=== PATIENT | male | born 1955 | race Caucasian/White ===

== ENCOUNTER 2016-08-03 16:32 | Emergency (ER) | payer MEDICARE, MEDICAID ==
[2016-08-03 16:59] VITALS: BP 151/105
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
[2016-08-03] MEDS ORDERED: HYDROmorphone 1 MG/ML Syringe IM ONE (17:20)
[2016-08-03] MEDS ORDERED: Diazepam 5 MG Tab PO ONE (18:55)
== END 2016-08-03 20:00 | disposition home or self-care (01) ==
LOC: JD.ED 16:32
DX: G89.29 Other chronic pain (principal); M54.5 Low back pain; I10 Essential (primary) hypertension; E78.00 Pure hypercholesterolemia, unspecified; F41.9 Anxiety disorder, unspecified; Z98.890 Other specified postprocedural states; Z79.899 Other long term (current) drug therapy; F17.210 Nicotine dependence, cigarettes, uncomplicated; Z88.8 Allergy status to other drugs, medicaments and biological substances
CPT/HCPCS: 96372; 99283; A9270; J1170; 99284

== ENCOUNTER 2016-08-06 04:23 | Emergency (ER) | payer MEDICARE, MEDICAID ==
[2016-08-06 04:38] VITALS: BP 138/103
[2016-08-06] MEDS ORDERED: Orphenadrine 100 MG Tab.ER PO STA (05:30)
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
--- NOTE | 2016-08-06 10:29 | CR ---
Lumbar spine: AP, lateral and coned down lateral views centered to the lumbosacral junction were obtained. Comparison: Previous MRI lumbar spine study of 04/24/10 is available. Severe disc space narrowing noted at L5-S1 with posterior spurring. Severe posterior disc space narrowing noted at L4-L5 with mild posterior osteophytes. Mild posterior disc space narrowing noted at L1-L2 and L2-L3. Mild compression deformity seen of T12 which appears to be old. Scattered endplate osteophytes are seen. Pedicles as well as visualized transverse and spinous processes are intact. Sacroiliac joints are unremarkable. Impression: 1. Diffuse degenerative change. Mild compression deformity of T12 which appears old. Overall, findings are fairly similar to prior MRI. Diagnostic code #2
== END 2016-08-06 07:00 | disposition home or self-care (01) ==
LOC: JD.ED 04:23
DX: G89.29 Other chronic pain (principal); M54.40 Lumbago with sciatica, unspecified side; R20.0 Anesthesia of skin; E78.00 Pure hypercholesterolemia, unspecified; I10 Essential (primary) hypertension; J44.9 Chronic obstructive pulmonary disease, unspecified; M19.90 Unspecified osteoarthritis, unspecified site; F41.9 Anxiety disorder, unspecified; Z79.899 Other long term (current) drug therapy; Z88.8 Allergy status to other drugs, medicaments and biological substances; F17.210 Nicotine dependence, cigarettes, uncomplicated
CPT/HCPCS: 72100; 99284; A9270; 99283

== ENCOUNTER 2016-10-27 19:34 | Emergency (ER) | payer MEDICARE, MEDICAID ==
--- NOTE | 2016-10-27 20:09 | EDM.PDOC ---
ED HPI GENERAL MEDICAL PROBLEM - General Chief Complaint: Headache Stated Complaint: HASN'T SLEPT IN A WEEK /HEADACHE Time Seen by Provider: 10/27/16 20:08 - History of Present Illness INITIAL COMMENTS - FREE TEXT/NARRATIVE: 60-year-old male presents to the emergency room with a migraine headache. This headache has been present for a little over a week the patient has been unable to sleep for about a week. He is unsure how this one actually started is progressively gotten worse. The patient has a history of recurrent migraines this one is no different except has not gone away the patient is on chronic oxycodone for back and neck pain. The patient has not any fevers or chills with this headache no areas of numbness or weakness. Headache Pain Score (Numeric/FACES): 10 - Related Data Allergies Allergy/AdvReac Type Severity Reaction Status Date / Time ketorolac [From Toradol] Allergy Nausea Verified 10/27/16 19:48 paroxetine [From Paxil] Allergy Nausea Verified 10/27/16 19:48 sertraline [From Zoloft] Allergy Nausea Verified 10/27/16 19:48 Home Meds: Home Meds Acetaminophen/oxyCODONE [Percocet 325-5 MG] 1 tab PO Q4H PRN 10/27/16 [History] Ipratropium/Albuterol Sulfate [Combivent Respimat Inhal [place]] 1 inh INH Q4H PRN 10/27/16 [History] Losartan [Cozaar] 50 mg PO DAILY 10/27/16 [History] Orphenadrine [Norflex] 100 mg PO Q8H PRN 10/27/16 [History] Pravastatin [Pravachol] 40 mg PO DAILY 10/27/16 [History] oxyCODONE ER [OxyCONTIN] 40 mg PO BID 10/27/16 [History] ED ROS GENERAL - Review of Systems Review Of Systems: See Below Constitutional: Reports: No Symptoms HEENT: Reports: No Symptoms Respiratory: Reports: No Symptoms Cardiovascular: Reports: No Symptoms Endocrine: Reports: No Symptoms GI/Abdominal: Reports: No Symptoms, Mucous in Stool Neurological: Reports: Headache. Denies: Confusion, Dizziness, Pre-Existing Deficit, Seizure, Syncope Psychiatric: Reports: No Symptoms. Denies: Homicidal Ideation, Mood Lability, Suicidal Ideation - Physical Exam Exam: See Below Exam Limited By: No Limitations General Appearance: Alert, No Apparent Distress Eye Exam: Bilateral Eye: EOMI, Normal Fundi, PERRL Ears: Normal External Exam, Normal Canal, Hearing Grossly Normal, Normal TMs Nose: Normal Inspection, Normal Mucosa, No Blood Throat/Mouth: Normal Inspection, Normal Lips, Normal Teeth, Normal Gums, Normal Oropharynx, Normal Voice, No Airway Compromise Head Exam: Atraumatic, Normocephalic Neck: Normal Inspection, Supple, Non-Tender, Full Range of Motion. No: Lymphadenopathy (L), Lymphadenopathy (R) Respiratory/Chest: No Respiratory Distress, Lungs Clear, Normal Breath Sounds Cardiovascular: Regular Rate, Rhythm, No Edema, No Murmur GI/Abdominal: Normal Bowel Sounds, Soft, Non-Tender Neuro Exam (Abbreviated): Alert, Oriented, Other (Cranial nerves II through XII grossly intact all muscle groups the upper extremities are equal and appropriate bilaterally all muscle groups the lower extremities are equal and appropriate bilaterally deep tendon reflexes are equal radialis and patella tendons are normal bilaterally cerebellar testing is entirely within normal limits.) Course - Vital Signs Last Recorded V/S: Last Vital Signs Temp 36.6 C 10/27/16 19:42 Pulse 95 10/27/16 19:42 Resp 12 10/27/16 19:42 BP 170/97 H 10/27/16 19:42 Pulse Ox 100 10/27/16 19:42 - Orders/Labs/Meds Meds: Medications Discontinued Medications Generic Name Dose Route Start Last Admin Trade Name Freq PRN Reason Stop Dose Admin Diphenhydramine HCl 50 mg 10/27/16 20:28 10/27/16 20:58 Benadryl IVPUSH 10/27/16 20:29 50 mg ONETIME ONE Administration Hydromorphone HCl 0.5 mg 10/27/16 21:21 10/27/16 21:31 Dilaudid IVPUSH 10/27/16 21:22 0.5 mg ONETIME ONE Administration Lactated Ringer's 1,000 mls @ 999 mls/hr 10/27/16 20:28 10/27/16 20:51 Ringers, Lactated IV 10/27/16 21:28 999 mls/hr .BOLUS ONE Administration Metoclopramide HCl 5 mg 10/27/16 20:28 10/27/16 20:53 Reglan IVPUSH 10/27/16 20:29 5 mg ONETIME ONE Administration - Re-Assessments/Exams Free Text/Narrative Re-Assessment/Exam: 10/27/16 22:04 Patient was initially treated with 5 mg of Reglan 50 mg of Benadryl liter of LR he did not get much relief with this this was followed up with a half milligram of Dilaudid he is getting some improvement at this time with this however he thinks he's okay to go home and sleep this off he does have a ride to take him home Departure - Departure Time of Disposition: 22:05 Disposition: Home, Self-Care 01 Clinical Impression: Migraine - Discharge Information Forms: ED Department Discharge Additional Instructions: Go home and sleep this off. Return to the emergency room with any questions or problems. Followup with your regular physician next week
[2016-10-27] MEDS ORDERED: Metoclopramide 10 MG/2 ML SDV IVPUSH ONE (20:28)
[2016-10-27] MEDS ORDERED: diphenhydrAMINE 50 MG/ML SDV IVPUSH ONE (20:28)
[2016-10-27] MEDS ORDERED: Lactated Ringers 1,000 ML IV ONE (20:28)
[2016-10-27] MEDS ORDERED: HYDROmorphone 0.5 MG/0.5 ML Syringe IVPUSH ONE (21:21)
[2016-10-27 22:57] VITALS: BP 144/91
== END 2016-10-27 22:25 | disposition home or self-care (01) ==
LOC: JD.ED 19:34 → MERGE 19:34 → JD.ED 22:25
DX: G43.909 Migraine, unspecified, not intractable, without status migrainosus (principal); Z79.899 Other long term (current) drug therapy; Z88.6 Allergy status to analgesic agent; Z88.8 Allergy status to other drugs, medicaments and biological substances
CPT/HCPCS: 96361; 96374; 96375; 99283; J1170; J1200; J2765; J7120; 99284

== ENCOUNTER 2016-11-21 18:52 | Emergency (ER) | payer MEDICARE, MEDICAID ==
[2016-11-21 19:11] VITALS: BP 169/112
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
[2016-11-21] MEDS ORDERED: HYDROmorphone 0.5 MG/0.5 ML Syringe IM ONE (19:25)
[2016-11-21] MEDS ORDERED: HYDROmorphone 1 MG/ML Syringe ONE (20:19)
--- NOTE | 2016-11-22 08:41 | CR ---
Lumbar spine: AP, lateral and coned-down lateral views centered to the lumbosacral junction were obtained. Comparison: Previous lumbar spine exam of 08/06/16. Mild anterior wedging is noted at T12 which appears stable. Severe disc space narrowing is noted at L5-S1. Moderate disc space narrowing is noted at L1-L2. Mild disc space narrowing is noted at L2-L3. Scattered anterior endplate osteophytes are seen. Pedicles as well as transverse and spinous processes are intact. No subluxation or fracture is seen. Atherosclerotic calcification is noted within the abdominal aorta. Detached bony density noted off the spinous process of L4 which appears old. Impression: 1. Stable anterior wedging of T12. 2. Degenerative change as noted above. Nothing acute is appreciated. Diagnostic code #2
== END 2016-11-21 20:51 | disposition home or self-care (01) ==
LOC: JD.ED 18:52
DX: M54.5 Low back pain (principal); I10 Essential (primary) hypertension; E78.00 Pure hypercholesterolemia, unspecified; J44.9 Chronic obstructive pulmonary disease, unspecified; M19.90 Unspecified osteoarthritis, unspecified site; F41.9 Anxiety disorder, unspecified; F17.210 Nicotine dependence, cigarettes, uncomplicated; Z98.890 Other specified postprocedural states; Z79.899 Other long term (current) drug therapy; Z88.6 Allergy status to analgesic agent; Z88.8 Allergy status to other drugs, medicaments and biological substances
CPT/HCPCS: 72100; 96372; 99283; J1170

== ENCOUNTER 2016-12-21 15:28 | Emergency (ER) | payer MEDICARE, MEDICAID ==
[2016-12-21 15:45] VITALS: BP 152/97
[2016-12-21] MEDS ORDERED: Metoclopramide 5 MG Tab PO ONE (16:14)
[2016-12-21] MEDS ORDERED: HYDROmorphone 1 MG/ML Syringe IM ONE (16:14)
[2016-12-21] MEDS ORDERED: diphenhydrAMINE 25 MG Cap PO ONE (16:15)
[2016-12-21] MEDS ORDERED: Metoclopramide Oral Soln 10 MG/10 ML UD Cup PO ONE (16:32)
[2016-12-21] MEDS ORDERED: Metoclopramide 10 MG Tab PO ONE (16:40)
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
== END 2016-12-21 17:40 | disposition home or self-care (01) ==
LOC: JD.ED 15:28
DX: M54.5 Low back pain (principal); R51 Headache; E78.00 Pure hypercholesterolemia, unspecified; I10 Essential (primary) hypertension; J44.9 Chronic obstructive pulmonary disease, unspecified; F41.9 Anxiety disorder, unspecified; F17.210 Nicotine dependence, cigarettes, uncomplicated; Z88.8 Allergy status to other drugs, medicaments and biological substances; Z88.6 Allergy status to analgesic agent; Z79.899 Other long term (current) drug therapy
CPT/HCPCS: 96372; 99284; A9270; J1170; 99283

== ENCOUNTER 2017-01-15 02:20 | Emergency (ER) | payer MEDICARE, MEDICAID ==
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
[2017-01-15 02:31] VITALS: BP 194/96
[2017-01-15] MEDS ORDERED: Acetaminophen/HYDROcodone 325-5 MG Tab PO ONE (02:42)
[2017-01-15] MEDS ORDERED: Amoxicillin 500 MG Cap PO ONE (02:42)
== END 2017-01-15 03:06 | disposition home or self-care (01) ==
LOC: JD.ED 02:20
DX: K08.89 Other specified disorders of teeth and supporting structures (principal); I10 Essential (primary) hypertension; E78.00 Pure hypercholesterolemia, unspecified; J44.9 Chronic obstructive pulmonary disease, unspecified; M19.90 Unspecified osteoarthritis, unspecified site; F41.9 Anxiety disorder, unspecified; F17.210 Nicotine dependence, cigarettes, uncomplicated; Z98.890 Other specified postprocedural states; Z79.899 Other long term (current) drug therapy; Z88.8 Allergy status to other drugs, medicaments and biological substances; Z88.6 Allergy status to analgesic agent; Z88.1 Allergy status to other antibiotic agents
CPT/HCPCS: 99283; A9270

== ENCOUNTER 2017-01-19 15:22 | Emergency (ER) | payer MEDICARE, MEDICAID ==
[2017-01-19 15:35] VITALS: BP 184/102
[2017-01-19] MEDS ORDERED: Acetaminophen Soln 650 MG/20.3 ML UD Cup PO ONE (16:08)
--- NOTE | 2017-01-19 16:16 | EDM.PDOC ---
ED HPI GENERAL MEDICAL PROBLEM - General Chief Complaint: Back Pain or Injury Stated Complaint: BACK PAIN Time Seen by Provider: 01/19/17 15:39 Source of Information: Reports: Patient, Old Records, RN Notes Reviewed History Limitations: Reports: No Limitations - History of Present Illness INITIAL COMMENTS - FREE TEXT/NARRATIVE: The patient states that he has had low back pain for 20 years. He is treated by Dr. Thais Temple at [facility] in [place], and the [place] PMPi indicates that the patient filled prescriptions for OxyContin 40 mg #56 tablets and Percocet 5/325 #112 tablets on 12/26/2016. He now presents with an exacerbation of his low back pain, stating that he over did it by doing laundry and bills yesterday. He states that he feels better. His walking, worse if he is lying down. He states that he did not run out of his prescription narcotics. Since he is under contract with a pain service, and states that he has not run out of his prescription pain medications, he is not able to elucidate why he came to the ED. lower back Pain Score (Numeric/FACES): 8 - Related Data Allergies Allergy/AdvReac Type Severity Reaction Status Date / Time fentanyl Allergy Hives Verified 01/19/17 15:36 gabapentin [From Neurontin] Allergy Rash Verified 01/19/17 15:36 ketorolac [From Toradol] Allergy Nausea Verified 01/19/17 15:36 ketorolac tromethamine Allergy Hives Verified 01/19/17 15:36 [From Toradol] paroxetine [From Paxil] Allergy Nausea Verified 01/19/17 15:36 sertraline [From Zoloft] Allergy Nausea Verified 01/19/17 15:36 sertraline HCl [From Zoloft] Allergy Hives Verified 01/19/17 15:36 Home Meds: Home Meds Fluticasone Propionate [Flonase] 1 spray NASBOTH DAILY 01/29/14 [History] Temazepam [Restoril] 30 mg PO BEDTIME 01/29/14 [History] Orphenadrine [Norflex] 100 mg PO BID 05/18/15 [History] Docusate Sodium [Colace] 100 mg PO DAILY 04/17/16 [History] Acetaminophen/oxyCODONE [Percocet 325-5 MG] 1 tab PO Q4H PRN 06/10/17 [History] Ipratropium/Albuterol Sulfate [Combivent Respimat Inhal [place]] 1 inh INH Q4H PRN 10/27/16 [History] Losartan [Cozaar] 50 mg PO DAILY 10/27/16 [History] Pravastatin [Pravachol] 40 mg PO DAILY 10/27/16 [History] oxyCODONE ER [OxyCONTIN] 40 mg PO BID 10/27/16 [History] Amoxicillin 500 mg PO TID #30 tab 01/15/17 [Rx] Hydrocodone/Acetaminophen [[place] 5-325 Tablet] 1 - 2 each PO Q6H #10 tablet [Rx] Past Medical History HEENT History: Reports: Impaired Vision, Other (See Below) Other HEENT History: dental pain, dentures Cardiovascular History: Reports: High Cholesterol, Hypertension Respiratory History: Reports: COPD (suspected, not diagnosed) Musculoskeletal History: Reports: Arthritis, Back Pain, Chronic, Fracture Neurological History: Reports: Headaches, Chronic, Head Trauma Psychiatric History: Reports: Anxiety - Infectious Disease History Infectious Disease History: Reports: Chicken Pox - Past Surgical History Musculoskeletal Surgical History: Reports: Arthroscopic Knee (right) Social & Family History - Family History Family Medical History: Noncontributory - Tobacco Use Smoking Status *Q: Current Every Day Smoker Years of Tobacco use: 45 Packs/Tins Daily: 0.2 Packs/Tins Daily Comment: Down from 10 packs per week - Caffeine Use Caffeine Use: Reports: Coffee, Soda - Alcohol Use Alcohol Use History: No Days Per Week of Alcohol Use: 0 - Recreational Drug Use Recreational Drug Use: Yes Drug Use in Last 12 Months: No Recreational Drug Type: Reports: Marijuana/Hashish - Living Situation & Occupation Living situation: Reports: Alone, Single 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) ED ROS GENERAL - Review of Systems Review Of Systems: See Below Constitutional: Reports: No Symptoms HEENT: Reports: No Symptoms Respiratory: Reports: No Symptoms Cardiovascular: Reports: No Symptoms Endocrine: Reports: No Symptoms GI/Abdominal: Reports: No Symptoms : Reports: No Symptoms Musculoskeletal: Reports: Back Pain (as per the HPI) Skin: Reports: No Symptoms Neurological: Reports: No Symptoms Psychiatric: Reports: No Symptoms Hematologic/Lymphatic: Reports: No Symptoms Immunologic: Reports: No Symptoms ED EXAM,LOWER BACK PAIN/INJURY - Physical Exam Exam: See Below Exam Limited By: No Limitations General Appearance: Alert, WD/WN, No Apparent Distress Ears: Normal External Exam, Hearing Grossly Normal Nose: Normal Inspection, No Blood Throat/Mouth: Normal Inspection, Normal Lips, Normal Voice, No Airway Compromise Head: Atraumatic, Normocephalic Neck: Normal Inspection, Full Range of Motion Back Exam: Normal Inspection, Full Range of Motion, Vertebral Tenderness (The patient jumped and an exaggerated fashion with minimal palpation to the lumbar spinous processes). No: Paraspinal Tenderness Neurological: Alert, No Motor/Sensory Deficits, Oriented x 3 Psychiatric: Normal Affect Skin Exam: Warm, Dry, Intact, Normal Color, No Rash Course - Vital Signs Last Recorded V/S: Last Vital Signs Temp 36.2 C 01/19/17 15:32 Pulse 95 01/19/17 15:32 Resp 18 01/19/17 15:32 BP 184/102 H 01/19/17 15:32 Pulse Ox 99 01/19/17 15:32 - Orders/Labs/Meds Meds: Medications Discontinued Medications Generic Name Dose Route Start Last Admin Trade Name Chaoq PRN Reason Stop Dose Admin Acetaminophen 650 mg 01/19/17 16:08 01/19/17 16:16 Tylenol PO 01/19/17 16:09 650 mg ONETIME ONE Administration - Re-Assessments/Exams Free Text/Narrative Re-Assessment/Exam: 01/19/17 16:09 The patient is complaining of chronic low back pain, but states that he has not suffered any recent injury. The objective findings of his examination do not correlate with his subjective complaints as he is reporting significant tenderness, jumping with even minimal palpation of his spinous processes, which would only be possible with a spinous process fracture, intraspinous ligament tear, or supraspinous ligament tear. These would only occur with a significant traumatic injury, which the patient denies having had recently. While the patient denies that he is looking for pain medication, I do not see any other reason for his visit to the ED today. I am offering him Tylenol, noting that he is under the care of Dr. Thais Temple from [facility] in [place]. Departure - Departure Time of Disposition: 16:16 Disposition: Home, Self-Care 01 Condition: Good Clinical Impression: Chronic low back pain, Drug-seeking behavior - Discharge Information Instructions: Back Pain, Adult, [id number] Referrals: William De MD [Primary Care Provider] - Thais Temple MD [Resident] - Forms: ED Department Discharge Additional Instructions: You were seen in the emergency room for chronic low back pain. As this is a chronic condition, with no new injury, he will need to follow-up with your pain management physician, Dr. Temple. If any other problems, please do not hesitate to return to the ER.
== END 2017-01-19 16:33 | disposition home or self-care (01) ==
LOC: JD.ED 15:22
DX: G89.29 Other chronic pain (principal); M54.5 Low back pain; Z76.5 Malingerer [conscious simulation]; I10 Essential (primary) hypertension; E78.00 Pure hypercholesterolemia, unspecified; J44.9 Chronic obstructive pulmonary disease, unspecified; F41.9 Anxiety disorder, unspecified; F17.210 Nicotine dependence, cigarettes, uncomplicated; M19.90 Unspecified osteoarthritis, unspecified site; Z79.899 Other long term (current) drug therapy; Z88.1 Allergy status to other antibiotic agents; Z88.6 Allergy status to analgesic agent; Z88.8 Allergy status to other drugs, medicaments and biological substances; Z98.890 Other specified postprocedural states
CPT/HCPCS: 99283; A9270

== ENCOUNTER 2017-01-31 19:04 | Emergency (ER) | payer MEDICARE, MEDICAID ==
[2017-01-31 19:14] VITALS: BP 151/92
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
[2017-01-31] MEDS ORDERED: HYDROmorphone 1 MG/ML Syringe IM ONE (20:59)
--- NOTE | 2017-02-01 09:02 | CR ---
Left forearm: Two views of the left forearm were obtained. No fracture or other bony abnormality is identified. Soft tissue swelling is present. Impression: 1. No bony abnormality is identified on two-view left forearm study. Diagnostic code #2
--- NOTE | 2017-02-01 10:07 | CR ---
Left wrist: Three views of the left wrist were obtained. Comparison: No prior wrist exam. Joint spaces are maintained. No fracture, dislocation or other bony abnormality is seen. Impression: 1. No abnormality is identified on left wrist exam. Diagnostic code #1
== END 2017-01-31 21:20 | disposition home or self-care (01) ==
LOC: JD.ED 19:04
DX: M10.9 Gout, unspecified (principal); E78.00 Pure hypercholesterolemia, unspecified; I10 Essential (primary) hypertension; J44.9 Chronic obstructive pulmonary disease, unspecified; F41.9 Anxiety disorder, unspecified; F17.210 Nicotine dependence, cigarettes, uncomplicated; Z88.6 Allergy status to analgesic agent; Z88.8 Allergy status to other drugs, medicaments and biological substances; Z79.899 Other long term (current) drug therapy
CPT/HCPCS: 73090; 73110; 96372; 99284; J1170; 99283

== ENCOUNTER 2017-05-25 10:09 | Emergency (ER) | payer MEDICARE, MEDICAID ==
[2017-05-25 10:30] VITALS: BP 146/94
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
--- NOTE | 2017-05-26 12:54 | CR ---
Chest and left ribs: Frontal view of the chest was obtained as well as three views of the left ribs. Comparison: No prior rib exam, previous chest x-ray of 06/19/11 is available. Several old healed left-sided rib fractures are noted. Several old right upper rib fractures also noted which appear healed. No definite acute rib fracture is appreciated. Lungs are clear. Heart size and mediastinum are normal. Minimal scoliosis is noted within the spine with degenerative endplate spurring. Impression: 1. Several old bilateral rib fractures which appear healed. 2. No definite acute rib fracture is appreciated. Nothing acute is seen on frontal chest x-ray Diagnostic code #2
--- NOTE | 2017-05-26 12:54 | CR ---
Right knee: Four views of the right knee were obtained. Comparison: No prior knee exam is available. Moderate narrowing of the medial joint compartment is seen. Degenerative cysts seen within the medial tibia. Lateral joint space appears preserved. Joint effusion is seen. Detached bony density which appears old is noted off the anterior tibial tuberosity. Vascular calcification is present. No acute bony abnormality is identified on right knee exam. Impression: 1. Degenerative change. Joint effusion. Vascular calcification. 2. No acute bony abnormality is identified. Diagnostic code #3
--- NOTE | 2017-05-26 12:54 | CR ---
Lumbar spine: AP, lateral and coned-down lateral views centered to the lumbosacral junction were obtained. Comparison: Prior lumbar spine study of 11/21/16. Anterior wedge deformity is identified within T12. This appears stable from prior exam. Scattered disc space narrowing throughout the lower thoracic and lumbar spine is seen which appears stable. Disc space narrowing is most severe at L5-S1. Minimal retrolisthesis is noted at L1-L2 and L2-L3 which appears stable. Scattered endplate osteophytes are seen. Pedicles as well as visualized transverse and spinous processes are intact. Posterior spurring noted at L4-L5 and L5-S1 as well as at L12. Impression: 1. Anterior wedging of T12 which appears stable from prior lumbar spine study. 2. Stable degenerative change as described above. 3. Nothing acute is appreciated. Diagnostic code #2
--- NOTE | 2017-05-26 12:54 | CR ---
Sacrum and coccyx: Three views of the sacrum and coccyx were obtained. Comparison: No prior study. Severe disc space narrowing is noted at L5-S1 with posterior spurring. Sacroiliac joints appear within normal limits. No acute fracture or other bony abnormality is seen within the sacrum or coccyx. Mild joint space narrowing is seen within both hips. Impression: 1. Degenerative change as noted above. 2. Nothing acute is appreciated on sacrum and coccyx study. Diagnostic code #2
== END 2017-05-25 13:21 | disposition home or self-care (01) ==
LOC: JD.ED 10:09
DX: M25.561 Pain in right knee (principal); M54.5 Low back pain; E78.00 Pure hypercholesterolemia, unspecified; I10 Essential (primary) hypertension; F17.210 Nicotine dependence, cigarettes, uncomplicated; Z88.6 Allergy status to analgesic agent; Z88.8 Allergy status to other drugs, medicaments and biological substances; Z79.899 Other long term (current) drug therapy; W19.XXXA Unspecified fall, initial encounter
CPT/HCPCS: 71101-26-LT; 71101-LT; 72100; 72100-26; 72220; 72220-26; 73564-26-RT; 73564-RT; 99283

== ENCOUNTER 2017-09-14 19:27 | Emergency (ER) | payer MEDICARE, MEDICAID ==
[2017-09-14 19:45] VITALS: BP 124/98
--- NOTE | 2017-09-14 20:02 | EDM.PDOC ---
ED HPI GENERAL MEDICAL PROBLEM - General Chief Complaint: Upper Extremity Injury/Pain Stated Complaint: LEFT ELBOW PAIN Time Seen by Provider: 09/14/17 19:40 Source of Information: Reports: Patient, Old Records History Limitations: Reports: No Limitations - History of Present Illness INITIAL COMMENTS - FREE TEXT/NARRATIVE: The patient states that he slipped and fell getting out of the shower about a month ago, striking his left elbow. He states that he immediately had pain and swelling to the area. He saw his PCP, Dr. Partida, on 09/04/2017. He states no x- rays were done, but that he was prescribed baclofen, not for his elbow, but for his other generalized aches and pains. The patient cannot explain why he took so long to see Dr. Partida, other than "I' m stubborn" and he cannot explain specifically why he came to the ED tonight. The patient is under pain contract for chronic back pain. He tells us that his pain service allows him to get an injection, but not pills. Please note that that is contrary to a standardized pain contract. Left Elbow Pain Score (Numeric/FACES): 10 - Related Data Allergies Allergy/AdvReac Type Severity Reaction Status Date / Time fentanyl Allergy Hives Verified 05/25/17 10:24 gabapentin [From Neurontin] Allergy Rash Verified 05/25/17 10:24 ketorolac [From Toradol] Allergy Nausea Verified 05/25/17 10:24 ketorolac tromethamine Allergy Hives Verified 05/25/17 10:24 [From Toradol] paroxetine [From Paxil] Allergy Nausea Verified 05/25/17 10:24 sertraline [From Zoloft] Allergy Nausea Verified 05/25/17 10:24 sertraline HCl [From Zoloft] Allergy Hives Verified 05/25/17 10:24 Home Meds: Home Meds Fluticasone Propionate [Flonase] 1 spray NASBOTH DAILY 01/29/14 [History] Temazepam [Restoril] 30 mg PO BEDTIME 01/29/14 [History] Docusate Sodium [Colace] 100 mg PO DAILY 04/17/16 [History] Ipratropium/Albuterol Sulfate [Combivent Respimat Inhal [place]] 1 inh INH Q4H PRN 06/10/17 [History] Losartan [Cozaar] 50 mg PO DAILY 10/27/16 [History] Pravastatin [Pravachol] 40 mg PO DAILY 10/27/16 [History] oxyCODONE ER [OxyCONTIN] 40 mg PO BID 10/27/16 [History] Cyclobenzaprine [Flexeril] 5 mg PO TID 09/14/17 [History] Past Medical History HEENT History: Reports: Impaired Vision Other HEENT History: dental pain, dentures Cardiovascular History: Reports: High Cholesterol, Hypertension Respiratory History: Reports: COPD (suspected, not confirmed) Other Respiratory History: smoker Musculoskeletal History: Reports: Arthritis, Back Pain, Chronic, Fracture ( vertebral compression fractures) Neurological History: Reports: Headaches, Chronic, Head Trauma Psychiatric History: Reports: Anxiety - Infectious Disease History Infectious Disease History: Reports: Chicken Pox - Past Surgical History Musculoskeletal Surgical History: Reports: Arthroscopic Knee (right) Social & Family History - Family History Family Medical History: Noncontributory - Tobacco Use Smoking Status *Q: Current Every Day Smoker Years of Tobacco use: 48 Packs/Tins Daily: 0.4 Packs/Tins Daily Comment: Down from 1.5 ppd - Caffeine Use Caffeine Use: Reports: Coffee, Soda - Alcohol Use Alcohol Use History: No Days Per Week of Alcohol Use: 0 - Recreational Drug Use Recreational Drug Use: Yes Drug Use in Last 12 Months: No Recreational Drug Type: Reports: Marijuana/Hashish - Living Situation & Occupation Living situation: Reports: Alone, Single Occupation: Unemployed Review of Systems - Review of Systems Review Of Systems: ROS reveals no pertinent complaints other than HPI. ED EXAM, GENERAL - Physical Exam Exam: See Below Exam Limited By: No Limitations General Appearance: Alert, WD/WN, No Apparent Distress Extremities: Other (Relatively small effusion over the extensor aspect of the elbow, consistent with lichen on bursitis. Mild tenderness to palpation in this area. Full active and passive range of motion of the elbow. Neurovascular status of the left upper extremity is intact.) Course - Vital Signs Last Recorded V/S: Last Vital Signs Temp 36.8 C 09/14/17 19:43 Pulse 103 H 09/14/17 19:43 Resp 20 09/14/17 19:43 BP 124/98 H 09/14/17 19:43 Pulse Ox 100 09/14/17 19:43 - Orders/Labs/Meds Orders: Active Orders 24 hr Category Date Time Status Elbow Min 3V Lt [CR] Stat Exams 09/14/17 19:54 Ordered - Re-Assessments/Exams Free Text/Narrative Re-Assessment/Exam: 09/14/17 20:14 4-view radiographs of the left elbow appear to be normal. No obvious fracture or dislocation seen, and no subtle findings, such as sail sign. Formal read per the Radiologist pending. 09/14/17 20:21 X-ray results discussed with the patient. I do not see an indication to aspirate or inject steroids into the elbow at this time, however, I will refer him to Dr. Ramirez for follow-up. Departure - Departure Time of Disposition: 20:21 Disposition: Home, Self-Care 01 Condition: Good Clinical Impression: Olecranon bursitis of left elbow - Discharge Information Referrals: William De MD [Primary Care Provider] - Valentín Ramirez MD [Physician] - Forms: ED Department Discharge Additional Instructions: You were seen in the emergency room for pain and swelling to your left elbow after injuring it in late July 2017. Workup in the ER included x-rays of your left elbow, which were normal. No fracture or dislocation identified. The cause of your pain and swelling is MOST LIKELY due to traumatic olecranon bursitis. Follow-up with the Orthopedic Surgeon Dr. Ramirez for further evaluation. If any other problems, please do not hesitate to return to the ER. - My Orders Last 24 Hours: My Active Orders 09/14/17 19:54 Elbow Min 3V Lt [CR] Stat - Assessment/Plan Last 24 Hours: My Active Orders 09/14/17 19:54 Elbow Min 3V Lt [CR] Stat
--- NOTE | 2017-09-15 14:26 | CR ---
Left elbow: Four views of the left elbow were obtained. Comparison: No prior elbow study. No joint effusion is seen. Joint spaces are preserved. No fracture, dislocation or other bony abnormality is seen. Impression: 1. No abnormality is identified on left elbow study. Diagnostic code #1
== END 2017-09-14 20:30 | disposition home or self-care (01) ==
LOC: JD.ED 19:27
DX: M70.22 Olecranon bursitis, left elbow (principal); E78.00 Pure hypercholesterolemia, unspecified; I10 Essential (primary) hypertension; J44.9 Chronic obstructive pulmonary disease, unspecified; F41.9 Anxiety disorder, unspecified; F17.210 Nicotine dependence, cigarettes, uncomplicated; Z88.8 Allergy status to other drugs, medicaments and biological substances; Z79.899 Other long term (current) drug therapy; Z88.5 Allergy status to narcotic agent; Y93.E1 Activity, personal bathing and showering; W01.10XA Fall on same level from slipping, tripping and stumbling with subsequent striking against unspecified object, initial encounter
CPT/HCPCS: 73080-26-LT; 73080-LT; 99283

== ENCOUNTER 2017-11-02 11:32 | Emergency (ER) | payer MEDICARE, MEDICAID ==
[2017-11-02 12:01] VITALS: BP 143/95
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
[2017-11-02 13:32] LABS: ACETAMINOPHEN 0 ug/mL (10-30)
--- NOTE | 2017-11-05 15:42 | CT ---
Head CT Technique: Multiple axial sections through the brain were obtained. Intravenous contrast was not utilized. Comparison: No previous intracranial imaging. Findings: Ventricles along the basal cisterns and sulci over the convexities are mildly prominent. Minimal diminished density is noted within the periventricular white matter which is compatible with small vessel ischemic demyelination change. No other abnormal parenchymal densities are seen. No evidence of intracranial hemorrhage. No midline shift or mass effect is seen. No discrete calvarial abnormality is seen. Visualized sinuses are clear. Impression: 1. Mild senescent change. No acute intracranial abnormality is identified. Diagnostic code #2 I agree with preliminary report from [facility], finalized at 11/02/17, 3:20 PM Central Time
== END 2017-11-02 14:30 ==
LOC: MERGE 11:32 → JD.ED 11:32
DX: R41.82 Altered mental status, unspecified (principal); T40.2X5A Adverse effect of other opioids, initial encounter; T42.4X5A Adverse effect of benzodiazepines, initial encounter; E87.1 Hypo-osmolality and hyponatremia; Z88.6 Allergy status to analgesic agent
CPT/HCPCS: 36415; 70450; 80053; 83735; 84443; 85025; 99284; G0480; 99283

== ENCOUNTER 2017-11-24 10:41 | Emergency (ER) | payer MEDICARE, MEDICAID ==
[2017-11-24 10:52] VITALS: BP 133/92
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
== END 2017-11-24 11:20 | disposition home or self-care (01) ==
LOC: JD.ED 10:41
DX: M25.511 Pain in right shoulder (principal); E78.00 Pure hypercholesterolemia, unspecified; I10 Essential (primary) hypertension; J44.9 Chronic obstructive pulmonary disease, unspecified; F17.210 Nicotine dependence, cigarettes, uncomplicated; Z88.8 Allergy status to other drugs, medicaments and biological substances; Z79.899 Other long term (current) drug therapy
CPT/HCPCS: 99283

== ENCOUNTER 2018-01-05 06:11 | Emergency (ER) | payer MEDICARE, MEDICAID ==
[2018-01-05] MEDS ORDERED: Acetaminophen/oxyCODONE 325-5 MG Tab PO ONE (06:21)
[2018-01-05 06:22] VITALS: BP 141/85
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
[2018-01-05] MEDS ORDERED: Bupivacaine 0.5% 10 ML SDV INJECT ONE (06:41)
[2018-01-05] MEDS ORDERED: Doxycycline 100 MG Cap PO ONE (07:17)
--- NOTE | 2018-01-08 11:04 | CR ---
Right fourth finger: Four views centered to the right fourth finger were obtained. Comparison: No prior study. Joint spaces are maintained. No fracture, dislocation or other bony abnormality is seen. Impression: 1. No abnormality is appreciated on right fourth finger study. Diagnostic code #1
== END 2018-01-05 08:42 | disposition home or self-care (01) ==
LOC: JD.ED 06:11
DX: S61.314A Laceration without foreign body of right ring finger with damage to nail, initial encounter (principal); E78.00 Pure hypercholesterolemia, unspecified; I10 Essential (primary) hypertension; J44.9 Chronic obstructive pulmonary disease, unspecified; F17.290 Nicotine dependence, other tobacco product, uncomplicated; Z79.899 Other long term (current) drug therapy; Z88.5 Allergy status to narcotic agent; Z88.8 Allergy status to other drugs, medicaments and biological substances; W01.0XXA Fall on same level from slipping, tripping and stumbling without subsequent striking against object, initial encounter
CPT/HCPCS: 12001; 73140; 99283; A9270; J3490

== ENCOUNTER 2018-01-27 19:31 | Emergency (ER) | payer MEDICARE, MEDICAID ==
[2018-01-27 20:02] VITALS: BP 143/91
--- NOTE | 2018-01-28 07:45 | CR ---
Chest: Two views of the chest were obtained. Comparison: Prior chest x-ray of 05/25/17. Increased lung markings are seen from prior exam. Findings presumably represent moderately severe bronchitis. Several old healed left mid rib fractures are noted. Heart does not appear enlarged. Mild degenerative endplate spurring is noted within the spine. Several compression deformities are seen within the spine which are believed to be old. Impression: 1. Increased lung markings from prior study raising the possibility of moderately severe bronchitis. 2. Other findings as noted above appear to be stable from previous exam. Diagnostic code #3
--- NOTE | 2018-01-28 08:03 | EDM.PDOC ---
ED HPI GENERAL MEDICAL PROBLEM - General Chief Complaint: Chest Pain Stated Complaint: RIB PAIN Time Seen by Provider: 01/27/18 23:07 Source of Information: Reports: Patient History Limitations: Reports: No Limitations - History of Present Illness INITIAL COMMENTS - FREE TEXT/NARRATIVE: The patient states that she slipped and fell down last night, 01/26/2018, injuring her right back. No recent cough. No recent fever. The patient is chronically dyspneic due to (suspected) COPD. The patient has a history of chronic back pain. 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 Review of the [place] PMPi confirms that the patient is prescribed oxycodone 5 mg, 56 tablets (28 day supply) every month, by Dr. Temple. The patient was also seen by Dr. Ramirez on 01/05/2018 or 01/06/2018, and underwent shoulder trigger point injection. The patient's PCP is Dr. Partida, whom she sees about every 6 months. She last saw him about 2 months ago. Review of our medical records finds that the patient has been previously found to be drug-seeking. Right Pain Score (Numeric/FACES): 10 - Related Data Allergies Allergy/AdvReac Type Severity Reaction Status Date / Time fentanyl Allergy Hives Verified 01/27/18 20:02 gabapentin [From Neurontin] Allergy Rash Verified 01/27/18 20:02 ketorolac [From Toradol] Allergy Nausea Verified 01/27/18 20:02 ketorolac tromethamine Allergy Hives Verified 01/27/18 20:02 [From Toradol] paroxetine [From Paxil] Allergy Nausea Verified 01/27/18 20:02 sertraline [From Zoloft] Allergy Nausea Verified 01/27/18 20:02 sertraline HCl [From Zoloft] Allergy Hives Verified 01/27/18 20:02 Home Meds: Home Meds Fluticasone Propionate [Flonase] 1 spray NASBOTH DAILY 01/29/14 [History] Temazepam [Restoril] 30 mg PO BEDTIME 01/29/14 [History] Docusate Sodium [Colace] 100 mg PO DAILY 04/17/16 [History] Ipratropium/Albuterol Sulfate [Combivent Respimat Inhal [place]] 1 puff INH QID PRN 10/27/16 [History] Losartan [Cozaar] 50 mg PO DAILY 10/27/16 [History] Pravastatin [Pravachol] 40 mg PO DAILY 10/27/16 [History] oxyCODONE ER [OxyCONTIN] 30 mg PO BID 10/27/16 [History] Orphenadrine [Norflex] 1 tab PO BID 11/24/17 [History] oxyCODONE 5 mg PO DAILY PRN 01/27/18 [History] Azithromycin [Zithromax] 250 mg PO DAILY #6 tab 01/29/18 [Rx] Past Medical History HEENT History: Reports: Impaired Vision Other HEENT History: dentures Cardiovascular History: Reports: High Cholesterol, Hypertension Respiratory History: Reports: COPD (suspected, not confirmed) Musculoskeletal History: Reports: Arthritis, Back Pain, Chronic, Fracture ( vertebral compression) Neurological History: Reports: Headaches, Chronic, Head Trauma Psychiatric History: Reports: Anxiety, Other (See Below) (Drug seekig behavior) - Infectious Disease History Infectious Disease History: Reports: Chicken Pox - Past Surgical History Musculoskeletal Surgical History: Reports: Arthroscopic Knee (right) Dermatological Surgical History: Reports: Skin Graft (left hand) Social & Family History - Family History Family Medical History: Noncontributory - Tobacco Use Smoking Status *Q: Current Every Day Smoker Years of Tobacco use: 49 Packs/Tins Daily: 0.3 Packs/Tins Daily Comment: Down from 1 ppd - Caffeine Use Caffeine Use: Reports: Coffee - Alcohol Use Alcohol Use History: No - Recreational Drug Use Recreational Drug Use: No - Living Situation & Occupation Living situation: Reports: Alone, Single Occupation: Unemployed ED ROS GENERAL - Review of Systems Review Of Systems: ROS reveals no pertinent complaints other than HPI. ED EXAM, GENERAL - Physical Exam Exam: See Below Exam Limited By: No Limitations General Appearance: Alert, WD/WN, No Apparent Distress Eye Exam: Bilateral Eye: EOMI, Normal Inspection Ears: Normal External Exam, Hearing Grossly Normal Nose: Normal Inspection Throat/Mouth: Normal Inspection, Normal Lips, Normal Voice, No Airway Compromise Head: Atraumatic, Normocephalic Neck: Normal Inspection, Full Range of Motion Respiratory/Chest: No Respiratory Distress, Lungs Clear, Normal Breath Sounds, No Accessory Muscle Use Cardiovascular: Normal Peripheral Pulses, Regular Rate, Rhythm, No Edema, No Gallop, No JVD, No Murmur, No Rub Peripheral Pulses: 4+: Radial (L), Radial (R) GI/Abdominal: Normal Bowel Sounds, Soft, Non-Tender, No Organomegaly, No Distention, No Abnormal Bruit, No Mass (Male) Exam: Deferred Rectal (Males) Exam: Deferred Back Exam: Other (Diagonal surgical scar on the patient's right flank - the patient states that she does not know what it is from) Extremities: Normal Inspection, Normal Range of Motion, Non-Tender, Normal Capillary Refill, No Pedal Edema Neurological: Alert, Oriented, Normal Cognition, No Motor/Sensory Deficits Skin Exam: Warm, Dry, Intact, Normal Color, No Rash Course - Vital Signs Last Recorded V/S: Last Vital Signs Temp 37.3 C 01/27/18 19:58 Pulse 108 H 01/27/18 19:58 Resp 19 01/27/18 19:58 BP 143/91 H 01/27/18 19:58 Pulse Ox 95 01/27/18 19:58 - Re-Assessments/Exams Free Text/Narrative Re-Assessment/Exam: 01/28/18 00:06 2 view chest radiograph reviewed. Cardiac silhouette is within normal limits. No pulmonary vascular congestion. No pleural effusions. There are bilateral hazy infiltrates, possibly due to pneumonia, atelectasis, bronchitis, or pulmonary fibrosis. No pneumothorax. Formal read per the Radiologist pending. The pulmonary infiltrates were not seen on the patient's prior chest radiographs , however, a lateral view is not available to compare. The patient has no pulmonary symptoms, such as cough or fever. She states that he is chronically dyspneic, no worse than usual. I have asked [facility] to review the patient's chest radiograph. 01/28/18 03:50 I inquired about the delay in receiving the chest x-ray interpretation from [facility], and was told that they are extremely busy and backed up. Notified that the patient left the emergency department, not willing to wait for the chest x-ray results. 01/28/18 05:10 Two-view chest radiograph is read by [facility] as: 1. COPD 2. Increased density in both lower lobes suggestive of bilateral pneumonia versus atelectasis. Departure - Departure Time of Disposition: 03:50 Disposition: Eloped 07 Condition: Good Clinical Impression: Back pain - Discharge Information *PRESCRIPTION DRUG MONITORING PROGRAM REVIEWED*: Yes *COPY OF PRESCRIPTION DRUG MONITORING REPORT IN PATIENT EVIE: Yes Prescriptions: Azithromycin [Zithromax] 250 mg PO DAILY #6 tab Referrals: William De MD [Primary Care Provider] - Forms: ED Department Discharge
== END 2018-01-28 03:45 | disposition left against medical advice (07) ==
LOC: JD.ED 19:31
DX: M54.9 Dorsalgia, unspecified (principal); G89.29 Other chronic pain; J44.9 Chronic obstructive pulmonary disease, unspecified; I10 Essential (primary) hypertension; F41.9 Anxiety disorder, unspecified; E78.00 Pure hypercholesterolemia, unspecified; F17.210 Nicotine dependence, cigarettes, uncomplicated; Z79.899 Other long term (current) drug therapy; Z88.6 Allergy status to analgesic agent; Z88.8 Allergy status to other drugs, medicaments and biological substances; W01.0XXA Fall on same level from slipping, tripping and stumbling without subsequent striking against object, initial encounter
CPT/HCPCS: 71046; 71046-26; 99283; 99285

== ENCOUNTER 2018-05-12 16:40 | Emergency (ER) | payer MEDICARE, MEDICAID ==
[2018-05-12 16:48] VITALS: BP 160/103
[2018-05-12] MEDS ORDERED: Cyclobenzaprine 10 MG Tab PO ONE (17:43)
[2018-05-12] MEDS ORDERED: Ondansetron 4 MG Tab.DIS PO ONE (17:43)
[2018-05-12] MEDS ORDERED: diphenhydrAMINE 50 MG/ML SDV IM ONE (17:43)
[2018-05-12] MEDS ORDERED: Ketorolac 60 MG/2 ML SDV IM ONE (17:43)
[2018-05-12] MEDS ORDERED: Lidocaine 5% 700 MG Patch TOP ONE (19:08)
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
== END 2018-05-12 19:47 | disposition home or self-care (01) ==
LOC: JD.ED 16:40
DX: G89.29 Other chronic pain (principal); M54.5 Low back pain; E78.00 Pure hypercholesterolemia, unspecified; I10 Essential (primary) hypertension; J44.9 Chronic obstructive pulmonary disease, unspecified; F17.210 Nicotine dependence, cigarettes, uncomplicated; Z88.8 Allergy status to other drugs, medicaments and biological substances; Z88.5 Allergy status to narcotic agent; Z79.899 Other long term (current) drug therapy
CPT/HCPCS: 96372; 99283; A9270; J1200; J1885

== ENCOUNTER 2018-08-13 17:20 | Emergency (ER) | payer MEDICARE, MEDICAID ==
[2018-08-13 17:48] VITALS: BP 162/99
[2018-08-13] MEDS ORDERED: Sodium Chloride 0.9% 1,000 ML IV SCH (18:30)
[2018-08-13] MEDS ORDERED: Haloperidol Lactate 5 MG/ML SDV IM ONE (18:54)
[2018-08-13] MEDS ORDERED: Benztropine 1 MG Tab PO ONE (18:55)
--- NOTE | 2018-08-13 18:59 | CT ---
Head CT Technique: Multiple axial sections through the brain were obtained. Intravenous contrast was not utilized. Comparison: Prior head CT study of 08/10/14. Findings: Ventricles along with basal cisterns and sulci over the convexities are mildly prominent. Minimal diminished density is seen within portions of the periventricular white matter compatible with small vessel ischemic demyelination change which appears stable from previous exam. Old lacunar infarct is noted within the right basal ganglia. No other abnormal parenchymal densities are seen. No evidence of intracranial hemorrhage. No midline shift or mass effect is seen. Bone window settings were reviewed which shows the visualized sinuses to appear clear. No acute calvarial abnormality is appreciated. Impression: 1. Mild senescent change as noted above. Nothing acute is appreciated on noncontrast head CT exam. Diagnostic code #2
[2018-08-13] MEDS ORDERED: Ketorolac 30 MG/ML SDV IVPUSH ONE (19:21)
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
[2018-08-13] MEDS ORDERED: Acetaminophen 325 MG Tab PO ONE (19:43)
== END 2018-08-13 20:25 | disposition home or self-care (01) ==
LOC: JD.ED 17:20
DX: R51 Headache (principal); E78.00 Pure hypercholesterolemia, unspecified; I10 Essential (primary) hypertension; J44.9 Chronic obstructive pulmonary disease, unspecified; F41.9 Anxiety disorder, unspecified; F17.210 Nicotine dependence, cigarettes, uncomplicated; Z88.8 Allergy status to other drugs, medicaments and biological substances; Z79.899 Other long term (current) drug therapy
CPT/HCPCS: 36415; 70450; 80053; 85025; 96360; 99284; A9270; J7040

== ENCOUNTER 2018-09-22 13:20 | Emergency (ER) | payer MEDICARE, MEDICAID | END 2018-09-22 13:44 | disposition left against medical advice (07) | LOC: SUPCPDRO 13:20 → JD.ED 13:20 | DX: Z53.21 Procedure and treatment not carried out due to patient leaving prior to being seen by health care provider (principal) ==

== ENCOUNTER 2019-01-08 16:10 | Emergency (ER) | payer MEDICARE, MEDICAID | END 2019-01-08 16:33 | LOC: JD.ED 16:10 | DX: Z53.21 Procedure and treatment not carried out due to patient leaving prior to being seen by health care provider (principal) ==

== ENCOUNTER 2019-11-28 17:34 | Emergency (ER) | payer MEDICARE, MEDICAID, OTHER ==
[2019-11-28 17:43] VITALS: BP 137/81; PULSE 72
[2019-11-28] MEDS ORDERED: Sodium Chloride 0.9% 10 ML Syringe FLUSH PRN (18:17)
[2019-11-28] MEDS ORDERED: Sodium Chloride 0.9% 1,000 ML IV SCH (18:30)
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
[2019-11-28] MEDS ORDERED: Aspirin 81 MG Tab.Chew PO ONE (19:19)
[2019-11-28] MEDS ORDERED: D5%-0.9% NaCl w/ KCl 40 meq 1,000 ML ONE (19:22)
[2019-11-28] MEDS ORDERED: D5 1/2 NS w/ 40 mEq/L KCl 1,000 ML IV SCH (19:30)
--- NOTE | 2019-11-29 11:25 | CT ---
Head CT Technique: Multiple axial sections through the brain were obtained. Comparison: Prior head CT study of 08/13/18. Findings: Ventricles along with basal cisterns and sulci over the convexities are mildly prominent. Minimal diminished density is noted within portions of the periventricular white matter compatible with minimal small vessel ischemic demyelination change. No other abnormal parenchymal densities are seen. No evidence of intracranial hemorrhage. No midline shift or mass-effect is seen. Minimal atherosclerotic calcification within the carotid siphon is seen. Visualized paranasal sinuses and mastoid sinuses show nothing acute. No acute calvarial finding is seen. Impression: 1. Mild senescent change. 2. No acute intracranial abnormality is appreciated. Diagnostic code #2 This report was dictated in MDT I agree with preliminary report from [facility], finalized on 11/28/19, 8:08 PM Central Daylight Time
== END 2019-11-28 20:44 ==
LOC: JD.ED 17:34
DX: I21.4 Non-ST elevation (NSTEMI) myocardial infarction (principal); M62.82 Rhabdomyolysis; I10 Essential (primary) hypertension; J44.9 Chronic obstructive pulmonary disease, unspecified; Z20.828 Contact with and (suspected) exposure to other viral communicable diseases; Z88.8 Allergy status to other drugs, medicaments and biological substances; Z88.6 Allergy status to analgesic agent; Z79.899 Other long term (current) drug therapy
CPT/HCPCS: 36415; 51701; 70450; 80053; 80306; 80307; 81001; 82550; 83735; 84484; 85025; 86140; 93005; 96361; 96365; 99285; A9270; J3480; J7030; U0002; 93010

== ENCOUNTER 2020-02-29 11:48 | Emergency (ER) | payer MEDICARE, MEDICAID ==
[2020-02-29 12:02] VITALS: BP 135/84
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
[2020-02-29 15:30] VITALS: PULSE 80
== END 2020-02-29 15:31 | disposition home or self-care (01) ==
LOC: JD.ED 11:48
DX: R60.0 Localized edema (principal); F17.210 Nicotine dependence, cigarettes, uncomplicated; I10 Essential (primary) hypertension; J44.9 Chronic obstructive pulmonary disease, unspecified; Z79.899 Other long term (current) drug therapy; Z88.4 Allergy status to anesthetic agent; Z88.8 Allergy status to other drugs, medicaments and biological substances; Z88.6 Allergy status to analgesic agent
CPT/HCPCS: 36415; 71045; 80053; 83880; 84484; 85379; 93005; 93971-RT; 99284-25

== ENCOUNTER 2020-03-24 00:50 | Emergency (ER) | payer MEDICARE, MEDICAID ==
[2020-03-24 01:17] VITALS: BP 125/81; PULSE 89
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
[2020-03-24] MEDS ORDERED: Furosemide 40 MG Tab PO ONE (01:45)
== END 2020-03-24 02:29 | disposition home or self-care (01) ==
LOC: JD.ED 00:50
DX: R60.0 Localized edema (principal); I10 Essential (primary) hypertension; I25.2 Old myocardial infarction; J44.9 Chronic obstructive pulmonary disease, unspecified; F17.210 Nicotine dependence, cigarettes, uncomplicated; Z79.899 Other long term (current) drug therapy; Z88.4 Allergy status to anesthetic agent; Z88.8 Allergy status to other drugs, medicaments and biological substances
CPT/HCPCS: 93005; 99284; A9270; 93010; 99283

== ENCOUNTER 2020-06-21 06:27 | Emergency (ER) | payer MEDICARE, MEDICAID ==
[2020-06-21 06:42] VITALS: BP 115/77; PULSE 77
[2020-06-21] MEDS ORDERED: HYDROmorphone 1 MG/ML Syringe IM ONE (07:01)
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
--- NOTE | 2020-06-21 08:50 | CR ---
Chest: 2 views of the chest were obtained. Comparison: Prior chest x-ray of 01/27/18. Heart size and mediastinum are normal. Questionable nodule within the left base which overlies the anterior sixth rib. I do not appreciate this on the prior study. Lungs otherwise are clear with no acute parenchymal change. Old bilateral rib fractures are noted which appear to be healed. Slight degenerative change is scattered within the spine. Impression: 1. Questionable nodule within the left base. Noncontrast chest CT is recommended. 2. Other nonacute findings as noted above. Diagnostic code #9
== END 2020-06-21 08:55 | disposition home or self-care (01) ==
LOC: JD.ED 06:27
DX: R07.89 Other chest pain (principal); I10 Essential (primary) hypertension; J44.9 Chronic obstructive pulmonary disease, unspecified; I25.2 Old myocardial infarction; Z72.0 Tobacco use; Z88.5 Allergy status to narcotic agent; Z88.8 Allergy status to other drugs, medicaments and biological substances; Z88.6 Allergy status to analgesic agent; Z79.899 Other long term (current) drug therapy; R06.02 Shortness of breath
CPT/HCPCS: 36415; 71046; 80053; 83880; 84484; 85007; 85027; 85379; 85610; 85730; 93005; 96372; 99285; J1170; 93010; 99284

== ENCOUNTER 2020-07-15 15:31 | Emergency (ER) | payer MEDICARE, MEDICAID ==
[2020-07-15 15:45] VITALS: BP 125/92; PULSE 100
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
--- NOTE | 2020-07-17 09:00 | CR ---
Left shoulder: 3 views of the left shoulder were obtained. Comparison: No prior left shoulder exam is available. Glenohumeral joint is normal. Joint space narrowing and mild spurring noted within the acromioclavicular joint. No acute fracture, dislocation or other bony abnormality is appreciated. There is an old healed rib fracture seen within the left eighth rib. Impression: 1. Findings as noted above. 2. Nothing acute is identified. Diagnostic code #2
--- NOTE | 2020-07-17 09:03 | CR ---
Pelvis and left hip: AP view of the pelvis was obtained as well as AP and frog-leg lateral views of the left hip. Comparison: No prior pelvis or left hip exam is available Moderate joint space narrowing is noted within both hips, worse on the left side. Sacroiliac joints are normal. Mild degenerative change is seen within the visualized lower lumbar spine. Vascular calcification is noted. Osteopenia is seen. Nothing acute is identified. Impression: 1. Degenerative change, vascular calcification and osteopenia. 2. No acute abnormality is appreciated. Diagnostic code #2
== END 2020-07-15 18:50 | disposition home or self-care (01) ==
LOC: JD.ED 15:31
DX: M25.512 Pain in left shoulder (principal); M25.552 Pain in left hip; I10 Essential (primary) hypertension; I25.2 Old myocardial infarction; J44.9 Chronic obstructive pulmonary disease, unspecified; F17.200 Nicotine dependence, unspecified, uncomplicated; Z88.4 Allergy status to anesthetic agent; Z88.8 Allergy status to other drugs, medicaments and biological substances; Z88.6 Allergy status to analgesic agent; W18.2XXA Fall in (into) shower or empty bathtub, initial encounter
CPT/HCPCS: 73030-26-LT; 73030-LT; 73502-26-LT; 73502-LT; 99282; 99284

== ENCOUNTER 2020-09-15 08:08 | Emergency (ER) | payer MEDICARE, MEDICAID ==
[2020-09-15 08:19] VITALS: BP 165/119; PULSE 90
[2020-09-15] MEDS ORDERED: Sodium Chloride 0.9% 10 ML Syringe FLUSH PRN (08:55)
[2020-09-15] MEDS ORDERED: HYDROmorphone 1 MG/ML Syringe IVPUSH ONE (08:56)
[2020-09-15] MEDS ORDERED: Ondansetron 4 MG/2 ML SDV IVPUSH ONE (08:56)
[2020-09-15] MEDS ORDERED: cefTRIAXone 2 GM in Sodium Chloride 0.9% 100 ML IV ONE (08:56)
[2020-09-15] MEDS ORDERED: Doxycycline 100 MG Cap PO ONE (08:57)
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
[2020-09-15] MEDS ORDERED: Lidocaine 1% 10 ML MDV ONE (10:23)
[2020-09-15] MEDS ORDERED: Lidocaine 1% 10 ML MDV INJECT ONE (10:46)
== END 2020-09-15 10:57 | disposition home or self-care (01) ==
LOC: JD.ED 08:08
DX: L72.3 Sebaceous cyst (principal); L02.212 Cutaneous abscess of back [any part, except buttock and flank]; E78.00 Pure hypercholesterolemia, unspecified; I10 Essential (primary) hypertension; I25.2 Old myocardial infarction; Z72.0 Tobacco use; Z79.899 Other long term (current) drug therapy; Z88.5 Allergy status to narcotic agent; Z88.6 Allergy status to analgesic agent; Z88.8 Allergy status to other drugs, medicaments and biological substances
CPT/HCPCS: 10060; 87075; 87205; 96365; 96375; 99283; A9270; J0696; J1170; J2405; 10061

== ENCOUNTER 2020-10-23 10:54 | Emergency (ER) | payer MEDICARE, MEDICAID ==
[2020-10-23 11:13] VITALS: BP 116/79; PULSE 90
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
== END 2020-10-23 11:40 | disposition home or self-care (01) ==
LOC: JD.ED 10:54
DX: Z48.817 Encounter for surgical aftercare following surgery on the skin and subcutaneous tissue (principal); I10 Essential (primary) hypertension; I25.2 Old myocardial infarction; F17.200 Nicotine dependence, unspecified, uncomplicated; M19.90 Unspecified osteoarthritis, unspecified site; Z88.4 Allergy status to anesthetic agent; Z88.8 Allergy status to other drugs, medicaments and biological substances; Z88.6 Allergy status to analgesic agent; Z79.82 Long term (current) use of aspirin
CPT/HCPCS: 99282

== ENCOUNTER 2020-12-22 10:45 | Emergency (ER) | payer MEDICARE, MEDICAID ==
[2020-12-22 11:25] VITALS: BP 151/100; PULSE 90
--- NOTE | 2020-12-22 12:10 | CR ---
Right knee: 4 views of the right knee were obtained. Comparison: No prior right knee study is available. Moderate medial joint space narrowing is noted with mild osteophytes seen medially. Detached bony density which appears old is seen off the anterior tibial tuberosity. Vascular calcification is noted. No joint effusion is seen. Impression: 1. Degenerative change primarily within the medial compartment of the right knee. 2. Other findings as noted above. 3. Nothing acute is seen on right knee study. Diagnostic code #2
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
== END 2020-12-22 12:40 | disposition home or self-care (01) ==
LOC: JD.ED 10:45
DX: S83.91XA Sprain of unspecified site of right knee, initial encounter (principal); I10 Essential (primary) hypertension; J44.9 Chronic obstructive pulmonary disease, unspecified; I25.2 Old myocardial infarction; F17.210 Nicotine dependence, cigarettes, uncomplicated; Z88.6 Allergy status to analgesic agent; Z88.8 Allergy status to other drugs, medicaments and biological substances; Z79.82 Long term (current) use of aspirin; W01.0XXA Fall on same level from slipping, tripping and stumbling without subsequent striking against object, initial encounter
CPT/HCPCS: 73564-26-RT; 73564-RT; 99283; 99283-25

== ENCOUNTER 2021-01-22 19:07 | Emergency (ER) | payer MEDICARE, MEDICAID ==
[2021-01-22 19:42] VITALS: BP 123/91; PULSE 91
== END 2021-01-22 21:10 | disposition left against medical advice (07) ==
LOC: JD.ED 19:07
DX: Z53.21 Procedure and treatment not carried out due to patient leaving prior to being seen by health care provider (principal)

== ENCOUNTER 2021-04-01 10:40 | Emergency (ER) | payer MEDICARE, MEDICAID ==
[2021-04-01 11:37] VITALS: BP 172/116; PULSE 92
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
--- NOTE | 2021-04-01 12:55 | CR ---
Left shoulder: 3 views of the left shoulder were obtained. Comparison: Prior left shoulder study of 07/15/20. Glenohumeral joint appears within normal limits. Slight degenerative change is noted within the acromioclavicular joint. Old healed left-sided rib fractures are noted. No fracture, dislocation or other bony abnormality is seen. Impression: 1. Stable findings as noted above. 2. Nothing acute is seen on 3 view left shoulder study. Diagnostic code #2
== END 2021-04-01 12:40 | disposition home or self-care (01) ==
LOC: JD.ED 10:40
DX: S49.92XA Unspecified injury of left shoulder and upper arm, initial encounter (principal); I10 Essential (primary) hypertension; I25.2 Old myocardial infarction; J44.9 Chronic obstructive pulmonary disease, unspecified; M19.90 Unspecified osteoarthritis, unspecified site; F17.200 Nicotine dependence, unspecified, uncomplicated; Z88.6 Allergy status to analgesic agent; Z88.5 Allergy status to narcotic agent; Z88.8 Allergy status to other drugs, medicaments and biological substances; Z79.82 Long term (current) use of aspirin; Z79.899 Other long term (current) drug therapy; W22.8XXA Striking against or struck by other objects, initial encounter
CPT/HCPCS: 73030-26-LT; 73030-LT; 99283

== ENCOUNTER 2021-04-29 15:45 | Emergency (ER) | payer MEDICARE, MEDICAID ==
[2021-04-29 16:35] VITALS: BP 131/85; PULSE 81
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
--- NOTE | 2021-04-30 09:04 | CT ---
Head CT Technique: Multiple axial sections through the brain were obtained. Intravenous contrast was not utilized. Reconstructed coronal and sagittal images were obtained. Comparison: Prior head CT study of 11/28/19. Findings: Ventricles along with basal cisterns and sulci over the convexities are mildly prominent. Minimal decreased density scattered within the periventricular white matter is seen which most likely represents small vessel ischemic demyelination change. No other abnormal parenchymal densities are seen. No evidence of intracranial hemorrhage is seen. No midline shift or mass-effect is seen. Bone window settings were reviewed. No acute calvarial abnormality is seen. Mild mucosal thickening is seen within the right ethmoid sinuses. Mastoid sinuses show nothing acute. Impression: 1. Slight mucosal thickening within the right ethmoid sinuses which is felt to represent chronic change. 2. Mild senescent change as noted above. 2. No acute intracranial abnormality is seen. Diagnostic code #2 I agree with preliminary report from [facility], finalized on 04/29/21, 7:41 PM FITTER HELPER, code 1
--- NOTE | 2021-04-30 09:13 | CT ---
CT facial bones Technique: Multiple axial sections through the facial bones were obtained. Reconstructed coronal and sagittal images were obtained. Comparison: No prior facial bone study is available. Findings: Slight mucosal thickening is seen within the left frontal sinus and within the right ethmoid sinus. Minimal mucosal thickening is seen within the right maxillary sinus. Degenerative change is partially visualized within the cervical spine. Minimal fracture is noted within the nasal bone, no displacement is seen. Other portions of the facial bones appear intact. No additional fracture is seen. Impression: 1. Minimal nasal bone fracture which appears anatomically aligned. This is indeterminate regarding age. 2. Mild chronic sinus findings. 3. No additional facial bone fracture is seen. Diagnostic code #3 I agree with preliminary report from [facility], finalized on 04/29/21, 7:42 PM DATA PROGRAMMER, code 1
== END 2021-04-29 19:03 | disposition home or self-care (01) ==
LOC: JD.ED 15:45
DX: S09.90XA Unspecified injury of head, initial encounter (principal); S00.83XA Contusion of other part of head, initial encounter; I10 Essential (primary) hypertension; I25.2 Old myocardial infarction; J44.9 Chronic obstructive pulmonary disease, unspecified; M19.90 Unspecified osteoarthritis, unspecified site; F17.210 Nicotine dependence, cigarettes, uncomplicated; Z88.8 Allergy status to other drugs, medicaments and biological substances; Z88.5 Allergy status to narcotic agent; Z88.6 Allergy status to analgesic agent; Z79.82 Long term (current) use of aspirin; Z79.899 Other long term (current) drug therapy; Y04.0XXA Assault by unarmed brawl or fight, initial encounter
CPT/HCPCS: 70450; 70450-26; 70486; 70486-26; 99283-25; 99285

== ENCOUNTER 2021-07-01 17:47 | Emergency (ER) | payer MEDICARE, MEDICAID ==
[2021-07-01 18:04] VITALS: BP 157/99; PULSE 76
[2021-07-01] MEDS ORDERED: Ibuprofen 600 MG Tab PO ONE (18:22)
== END 2021-07-01 19:36 | disposition home or self-care (01) ==
LOC: JD.ED 17:47
DX: S20.211A Contusion of right front wall of thorax, initial encounter (principal); S50.11XA Contusion of right forearm, initial encounter; E78.00 Pure hypercholesterolemia, unspecified; I10 Essential (primary) hypertension; I25.2 Old myocardial infarction; J44.9 Chronic obstructive pulmonary disease, unspecified; Z88.5 Allergy status to narcotic agent; Z88.8 Allergy status to other drugs, medicaments and biological substances; Z88.6 Allergy status to analgesic agent; Z79.82 Long term (current) use of aspirin; Z79.899 Other long term (current) drug therapy; Z72.0 Tobacco use; W07.XXXA Fall from chair, initial encounter
CPT/HCPCS: 71101; 73090; 99283; A9270

== ENCOUNTER 2021-12-16 14:26 | Emergency (ER) | payer MEDICARE, MEDICAID ==
[2021-12-16] MEDS ORDERED: Oxymetazoline 0.05% Nasal Spray 30 ML Bottle NAS ONE (16:07)
[2021-12-16] MEDS ORDERED: Sodium Chloride 0.9% 1,000 ML IV SCH (16:15)
[2021-12-16 19:12] VITALS: BP 124/82; PULSE 73
== END 2021-12-16 19:08 | disposition home or self-care (01) ==
LOC: JD.ED 14:26
DX: R55 Syncope and collapse (principal); R04.0 Epistaxis; J44.9 Chronic obstructive pulmonary disease, unspecified; I10 Essential (primary) hypertension; I25.2 Old myocardial infarction; Z88.6 Allergy status to analgesic agent; Z88.8 Allergy status to other drugs, medicaments and biological substances; Z88.1 Allergy status to other antibiotic agents; Z79.899 Other long term (current) drug therapy
CPT/HCPCS: 30901; 36415; 80053; 85007; 85027; 85610; 85730; 96360; 99283; A9270; C9046; J7030

== ENCOUNTER 2022-01-29 20:14 | Emergency (ER) | payer OTHER, MEDICARE, MEDICAID ==
[2022-01-29] MEDS ORDERED: Sodium Chloride 0.9% 1,000 ML IV SCH (20:45)
[2022-01-29 21:35] LABS: ESTIMATED GFR 67 mL/min (>60)
[2022-01-30] MEDS ORDERED: Sodium Chloride 0.9% 250 ML ONE (00:33)
[2022-01-30 06:32] VITALS: BP 120/81; PULSE 78
== END 2022-01-30 07:09 | disposition home or self-care (01) ==
LOC: JD.ED 20:14
DX: S02.401A Maxillary fracture, unspecified side, initial encounter for closed fracture (principal); D64.9 Anemia, unspecified; J44.9 Chronic obstructive pulmonary disease, unspecified; F19.10 Other psychoactive substance abuse, uncomplicated; F17.210 Nicotine dependence, cigarettes, uncomplicated; Z88.6 Allergy status to analgesic agent; Z88.8 Allergy status to other drugs, medicaments and biological substances; Z88.1 Allergy status to other antibiotic agents; V49.40XA Driver injured in collision with unspecified motor vehicles in traffic accident, initial encounter; Y92.410 Unspecified street and highway as the place of occurrence of the external cause
CPT/HCPCS: 36415; 36430; 70450; 70486; 72125; 80053; 80306; 80307; 83735; 84484; 85025; 85610; 85730; 86850; 86900; 86901; 86922; 96360; 96361; 99284; J7030; P9016; 99283

== ENCOUNTER 2023-07-08 16:14 | Emergency (ER) | payer MEDICARE, MEDICAID ==
[2023-07-08 19:13] VITALS: BP 159/107; PULSE 100
== END 2023-07-08 19:00 | disposition home or self-care (01) ==
LOC: JD.ED 16:14
DX: M54.12 Radiculopathy, cervical region (principal); M54.2 Cervicalgia; F17.210 Nicotine dependence, cigarettes, uncomplicated; J44.9 Chronic obstructive pulmonary disease, unspecified; I10 Essential (primary) hypertension; W00.9XXA Unspecified fall due to ice and snow, initial encounter; Z79.899 Other long term (current) drug therapy; Z88.8 Allergy status to other drugs, medicaments and biological substances
CPT/HCPCS: 70450; 70450-26; 72125; 72125-26; 72128; 72128-26; 72131; 72131-26; 99284

== ENCOUNTER 2023-09-25 11:31 | Emergency (ER) | payer MEDICARE, MEDICAID ==
[2023-09-25] MEDS: Acetaminophen/HYDROcodone 325-5 MG Tab PO ONE (12:20)
[2023-09-25 18:18] VITALS: BP 137/74; PULSE 77
== END 2023-09-25 14:25 | disposition home or self-care (01) ==
LOC: JD.ED 11:31
DX: M54.9 Dorsalgia, unspecified (principal); G89.29 Other chronic pain; I10 Essential (primary) hypertension; J45.909 Unspecified asthma, uncomplicated; F17.210 Nicotine dependence, cigarettes, uncomplicated; Z88.8 Allergy status to other drugs, medicaments and biological substances; Z79.899 Other long term (current) drug therapy; Z86.19 Personal history of other infectious and parasitic diseases
CPT/HCPCS: 99283; A9270

== ENCOUNTER 2023-10-21 13:26 | Emergency (ER) | payer MEDICARE, MEDICAID ==
[2023-10-21 14:40] VITALS: BP 114/67; PULSE 98
[2023-10-21 14:44] LABS: BASOPHILS ABSOLUTE AUTO 0.1 K/mm3 (0.0-0.2); BASOPHILS PERCENT AUTO 0.6 % (0.0-1.0); EOSINOPHILS ABSOLUTE AUTO 0.4 K/mm3 (0.0-0.4); HEMATOCRIT 35.3 % (42.0-52.0); HEMOGLOBIN 11.4 gm/dl (14.0-18.0); IMMATURE GRAN ABSOLUTE AUTO 0.02 K/mm3 (0.00-0.05); IMMATURE GRAN PERCENT AUTO 0.2 % (0.0-0.4); LYMPHOCYTES ABSOLUTE AUTO 1.2 K/mm3 (1.0-4.8); LYMPHOCYTES PERCENT AUTO 13.8 % (24.0-44.0); MEAN CORPUSCULAR HEMOGLOBIN 28.5 pg (28.0-32.0); MEAN CORPUSCULAR HGB CONC 32.3 g/dl (32.0-36.0); MEAN CORPUSCULAR VOLUME 88.3 fl (83.0-99.0); MEAN PLATELET VOLUME 8.5 fl (9.4-12.4); MONOCYTES ABSOLUTE AUTO 0.6 K/mm3 (0.0-0.8); MONOCYTES PERCENT AUTO 7.6 % (0.0-8.0); NEUTROPHILS ABSOLUTE AUTO 6.1 K/mm3 (1.8-7.7); NEUTROPHILS PERCENT AUTO 72.8 % (41.0-71.0); PLATELET COUNT,PLT 245 K/mm3 (150-400); WHITE BLOOD CELL COUNT,WBC 8.39 K/mm3 (3.9-11.3)
[2023-10-21 15:33] LABS: ALBUMIN 3.3 g/dl (3.4-5.0); ANION GAP 17.8 (5-15); BILIRUBIN TOTAL 0.2 mg/dL (0.2-1.0); BUN/CREATININE RATIO 27.5 (14-18); CALCIUM 9.2 mg/dL (8.5-10.1); CREATININE 1.6 mg/dL (0.7-1.3); EST CRCL DRUG DOSING (CG) 44.32 mL/min; POTASSIUM,K 3.8 mEq/L (3.5-5.1); PROTEIN TOTAL,TP 6.5 g/dl (6.4-8.2); TSH 1.393 uIU/mL (0.358-3.74)
[2023-10-21 16:43] LABS: AMPHETAMINES SCREEN, URINE PRESUMPTIVE POSITIVE (CUTOFF=500); BARBITURATE SCREEN,URINE NEGATIVE (CUTOFF=200); BENZODIAZEPINES SCREEN,URINE PRESUMPTIVE POSITIVE (CUTOFF=150); BUPRENORPHINE SCREEN,URINE NEGATIVE (CUTOFF=10); METHADONE SCREEN, URINE NEGATIVE (CUT0FF=200); METHAMPHETAMINES SCREEN, URINE PRESUMPTIVE POSITIVE (CUTOFF=500); OXYCODONE SCREEN,URINE NEGATIVE (CUT0FF=100); THC SCREEN,URINE 20 NG/ML PRESUMPTIVE POSITIVE (CUTOFF=50)
== END 2023-10-21 16:50 | disposition home or self-care (01) ==
LOC: JD.ED 13:26
DX: F12.10 Cannabis abuse, uncomplicated (principal); F15.10 Other stimulant abuse, uncomplicated; E78.00 Pure hypercholesterolemia, unspecified; I10 Essential (primary) hypertension; Z88.8 Allergy status to other drugs, medicaments and biological substances; Z79.899 Other long term (current) drug therapy; Z86.19 Personal history of other infectious and parasitic diseases
CPT/HCPCS: 36415; 80053; 80143; 80179; 80306; 80307; 84443; 85025; 99284

== ENCOUNTER 2023-12-21 12:45 | Emergency (ER) | payer MEDICARE, MEDICAID ==
[2023-12-21 14:33] LABS: BASOPHILS PERCENT AUTO 0.5 % (0.0-1.0); EOSINOPHILS ABSOLUTE AUTO 0.5 K/mm3 (0.0-0.4); EOSINOPHILS PERCENT AUTO 6.6 % (0.0-6.0); HEMATOCRIT 39.4 % (42.0-52.0); HEMOGLOBIN 12.3 gm/dl (14.0-18.0); IMMATURE GRAN ABSOLUTE AUTO 0.01 K/mm3 (0.00-0.05); IMMATURE GRAN PERCENT AUTO 0.1 % (0.0-0.4); LYMPHOCYTES ABSOLUTE AUTO 1.7 K/mm3 (1.0-4.8); MEAN CORPUSCULAR HEMOGLOBIN 29.1 pg (28.0-32.0); MEAN CORPUSCULAR HGB CONC 31.2 g/dl (32.0-36.0); MEAN PLATELET VOLUME 8.6 fl (9.4-12.4); MONOCYTES ABSOLUTE AUTO 0.8 K/mm3 (0.0-0.8); MONOCYTES PERCENT AUTO 10.2 % (0.0-8.0); NEUTROPHILS PERCENT AUTO 61.6 % (41.0-71.0); PLATELET COUNT,PLT 231 K/mm3 (150-400); RED BLOOD CELL COUNT 4.23 M/mm3 (4.52-5.90); WHITE BLOOD CELL COUNT,WBC 8.06 K/mm3 (3.9-11.3)
[2023-12-21 14:35] LABS: MEAN CORPUSCULAR VOLUME 93.1 fl (83.0-99.0)
[2023-12-21 14:57] LABS: A/G RATIO 1.1 (1-2); ALBUMIN 3.3 g/dl (3.4-5.0); ANION GAP 9.6 (5-15); BILIRUBIN TOTAL 0.4 mg/dL (0.2-1.0); BUN/CREATININE RATIO 22.5 (14-18); CREATININE 1.6 mg/dL (0.7-1.3); EST CRCL DRUG DOSING (CG) 38.97 mL/min; POTASSIUM,K 4.6 mEq/L (3.5-5.1); PROTEIN TOTAL,TP 6.4 g/dl (6.4-8.2)
[2023-12-21] MEDS: diphenhydrAMINE 50 MG/ML SDV IVPUSH ONE (16:15)
[2023-12-21] MEDS: Sodium Chloride 0.9% 1,000 ML IV SCH (16:17)
[2023-12-21] MEDS: LORazepam 2 MG/ML SDV IM ONE (16:21)
[2023-12-21] MEDS: Haloperidol Lactate 5 MG/ML SDV IM ONE (16:24)
[2023-12-21] MEDS: Lactated Ringers 1,000 ML IV SCH ×2 (17:41→22:19)
[2023-12-22 02:39] LABS: BARBITURATE SCREEN,URINE NEGATIVE (CUTOFF=200); BENZODIAZEPINES SCREEN,URINE PRESUMPTIVE POSITIVE (CUTOFF=150); BUPRENORPHINE SCREEN,URINE NEGATIVE (CUTOFF=10); METHADONE SCREEN, URINE NEGATIVE (CUT0FF=200); METHAMPHETAMINES SCREEN, URINE PRESUMPTIVE POSITIVE (CUTOFF=500); OXYCODONE SCREEN,URINE NEGATIVE (CUT0FF=100); THC SCREEN,URINE 20 NG/ML PRESUMPTIVE POSITIVE (CUTOFF=50)
[2023-12-22 02:45] LABS: AMPHETAMINES SCREEN, URINE PRESUMPTIVE POSITIVE (CUTOFF=500)
[2023-12-22 16:40] VITALS: BP 133/77; PULSE 88
== END 2023-12-22 16:34 | disposition home or self-care (01) ==
LOC: JD.ED 12:45
DX: R07.81 Pleurodynia (principal); F15.10 Other stimulant abuse, uncomplicated; E78.00 Pure hypercholesterolemia, unspecified; I10 Essential (primary) hypertension; J45.909 Unspecified asthma, uncomplicated; Z79.899 Other long term (current) drug therapy; Z88.8 Allergy status to other drugs, medicaments and biological substances
CPT/HCPCS: 36415; 71111; 80053; 80306; 80307; 85025; 96361; 96372; 96374; 99284; J1200; J1630; J2060; J7030; J7120

== ENCOUNTER 2024-02-08 19:50 | Emergency (ER) | payer MEDICARE, MEDICAID ==
[2024-02-08 19:58] VITALS: BP 132/81; PULSE 92
[2024-02-08] MEDS: Acetaminophen 325 MG Tab PO ONE (21:26)
== END 2024-02-08 21:36 | disposition home or self-care (01) ==
LOC: JD.ED 19:50
DX: M25.561 Pain in right knee (principal); I10 Essential (primary) hypertension; I25.2 Old myocardial infarction; F17.210 Nicotine dependence, cigarettes, uncomplicated; Z79.899 Other long term (current) drug therapy; Z88.8 Allergy status to other drugs, medicaments and biological substances; Z88.5 Allergy status to narcotic agent; W01.0XXA Fall on same level from slipping, tripping and stumbling without subsequent striking against object, initial encounter
CPT/HCPCS: 73564; 73590; 99283; A9270

== ENCOUNTER 2024-02-21 12:20 | Emergency (ER) | payer MEDICARE, MEDICAID ==
[2024-02-21] MEDS ORDERED: Sodium Chloride 0.9% 10 ML Syringe FLUSH PRN (13:37)
[2024-02-21 14:23] LABS: BASOPHILS ABSOLUTE AUTO 0.1 K/mm3 (0.0-0.2); BASOPHILS PERCENT AUTO 0.9 % (0.0-1.0); EOSINOPHILS ABSOLUTE AUTO 0.3 K/mm3 (0.0-0.4); EOSINOPHILS PERCENT AUTO 5.3 % (0.0-6.0); HEMATOCRIT 36.8 % (42.0-52.0); HEMOGLOBIN 11.6 gm/dl (14.0-18.0); IMMATURE GRAN ABSOLUTE AUTO 0.01 K/mm3 (0.00-0.05); IMMATURE GRAN PERCENT AUTO 0.2 % (0.0-0.4); LYMPHOCYTES ABSOLUTE AUTO 1.3 K/mm3 (1.0-4.8); LYMPHOCYTES PERCENT AUTO 23.8 % (24.0-44.0); MEAN CORPUSCULAR HEMOGLOBIN 28.9 pg (28.0-32.0); MEAN CORPUSCULAR HGB CONC 31.5 g/dl (32.0-36.0); MEAN CORPUSCULAR VOLUME 91.5 fl (83.0-99.0); MEAN PLATELET VOLUME 8.8 fl (9.4-12.4); MONOCYTES ABSOLUTE AUTO 0.7 K/mm3 (0.0-0.8); MONOCYTES PERCENT AUTO 13.3 % (0.0-8.0); NEUTROPHILS PERCENT AUTO 56.5 % (41.0-71.0); PLATELET COUNT,PLT 241 K/mm3 (150-400); RED BLOOD CELL COUNT 4.02 M/mm3 (4.52-5.90); WHITE BLOOD CELL COUNT,WBC 5.33 K/mm3 (3.9-11.3)
[2024-02-21] MEDS: Sodium Chloride 0.9% 1,000 ML IV STA (14:50)
[2024-02-21 14:55] LABS: ALANINE AMINOTRANSFERASE,ALT 28 U/L (16-63); ALBUMIN 3.2 g/dl (3.4-5.0); ALKALINE PHOSPHATASE 117 U/L (46-116); ANION GAP 9.5 (5-15); ASPARTATE AMNIOTRANSFERASE,AST 33 U/L (15-37); BILIRUBIN TOTAL 0.4 mg/dL (0.2-1.0); BLOOD UREA NITROGEN,BUN 35 mg/dL (7-18); BUN/CREATININE RATIO 20.6 (14-18); C-REACTIVE PROTEIN 0.21 mg/dL (<0.30); CALCIUM 8.7 mg/dL (8.5-10.1); CARBON DIOXIDE,CO2 32 mEq/L (21-32); CHLORIDE,CL 103 mEq/L (98-107); CREATININE 1.7 mg/dL (0.7-1.3); ESTIMATED GFR 44 mL/min (>60); GLUCOSE RANDOM 83 mg/dL (70-99); POTASSIUM,K 3.5 mEq/L (3.5-5.1); PROTEIN TOTAL,TP 6.3 g/dl (6.4-8.2); SODIUM,NA 141 mEq/L (136-145)
[2024-02-21 15:08] LABS: TSH 0.965 uIU/mL (0.358-3.74)
[2024-02-22 05:20] VITALS: BP 113/76; PULSE 67
== END 2024-02-22 05:10 | disposition home or self-care (01) ==
LOC: JD.ED 12:20
DX: R41.82 Altered mental status, unspecified (principal); I25.2 Old myocardial infarction; I10 Essential (primary) hypertension; E78.00 Pure hypercholesterolemia, unspecified; J45.909 Unspecified asthma, uncomplicated; K21.9 Gastro-esophageal reflux disease without esophagitis; Z88.5 Allergy status to narcotic agent; Z88.8 Allergy status to other drugs, medicaments and biological substances; Z79.899 Other long term (current) drug therapy
CPT/HCPCS: 36415; 70450; 80053; 80143; 80179; 80307; 84443; 84484; 85025; 86140; 93005; 96360; 96361; 99285; J7030

== ENCOUNTER 2024-03-27 12:36 | Emergency (ER) | payer MEDICARE, MEDICAID ==
[2024-03-27] MEDS ORDERED: Sodium Chloride 0.9% 1,000 ML IV ONE (12:37)
[2024-03-27] MEDS ORDERED: EPINEPHrine 1:10,000 1 MG/10 ML Syringe ONE ×3 (12:43)
== END 2024-03-27 14:46 | disposition expired ==
LOC: JD.ED 12:36
DX: I46.9 Cardiac arrest, cause unspecified (principal); F15.129 Other stimulant abuse with intoxication, unspecified; J45.909 Unspecified asthma, uncomplicated; I10 Essential (primary) hypertension; I25.2 Old myocardial infarction; Z79.899 Other long term (current) drug therapy; Z88.8 Allergy status to other drugs, medicaments and biological substances
CPT/HCPCS: 92950; 99285; J0171; J7030